=== PATIENT | male | born 1965 | race Caucasian/White ===

== ENCOUNTER → 2017-07-13 | Outpatient (CLI) | payer BC, OTHER ==
[2017-07-13 12:56] LABS: Blood Urea Nitrogen 14 mg/dL (9-20); Non-African American GFR(MDRD) >60 (>60 ml/min/1.73 sqM)
--- NOTE | 2017-07-13 14:14 | CT ---
EXAMINATION TYPE: CT abdomen pelvis w con DATE OF EXAM: 07/13/2017 COMPARISON: NONE HISTORY: Right lower quadrant pain CT DLP: 1414 mGycm Automated exposure control for dose reduction was used. TECHNIQUE: Helical acquisition of images was performed from the lung bases through the pelvis. CONTRAST: Performed with Oral Contrast and with IV Contrast, patient injected with 100 mL of Omnipaque 300. FINDINGS: LUNG BASES: No significant abnormality is appreciated. LIVER/GB: Similar hypoattenuated hepatic lesions are seen within segment 4A and 8 in comparison the p rior exam of 02/03/2016 and appears stable, likely relating to hemangiomas or cysts. A small amount of air is seen within the extrahepatic biliary system, also unchanged from the prior exam secondary to t he Whipple surgery. Gallbladder surgically absent. PANCREAS: Pancreatic head is surgically absent and there is persistent ductal dilatation of the pancr eatic duct SPLEEN: No significant abnormality is seen. ADRENALS: No significant abnormality is seen. KIDNEYS: No significant abnormality is seen. FREE AIR: No free air is visualized. RETROPERITONEAL ADENOPATHY: None visualized nonenlarged portacaval lymph node is seen measuring 5 mm . There is a stable calcified pericaval lymph node on image 35, nonenlarged. REPRODUCTIVE ORGANS: No significant abnormality is seen URINARY BLADDER: No significant abnormality is seen. Small urachal remnant is noted. PELVIC ADENOPATHY: None visualized. OSSEOUS STRUCTURES: No significant abnormality is seen. BOWEL: Proximal small bowel has an unchanged morphology and course in comparison to the prior exam a nd is nondilated, excluding internal hernia and is post Whipple's patient. No fat stranding is seen w ithin the right lower quadrant. OTHER: IMPRESSION: 1. NO CT FINDINGS TO CORRESPOND TO THE PATIENT'S RIGHT LOWER QUADRANT PAIN. NO EVIDENCE OF BOWEL OBST RUCTION. 2. PERSISTENT UNCHANGED PANCREATIC DUCTAL DILATATION STATUS POST WHIPPLE PROCEDURE. 3. STABLE PERICAVAL CALCIFIED LYMPH NODE, NONENLARGED. 4. STABLE HYPOATTENUATED HEPATIC LESIONS, FAVORED TO BE BENIGN.
== END | disposition home or self-care (01) ==
LOC: RADCTMAIN 12:11
PROVIDERS: ATTEND Surgery
DX: K76.89 Other specified diseases of liver (principal); K86.89 Other specified diseases of pancreas
CPT/HCPCS: 82565; 84520; 74177; 36415; Q9967

== ENCOUNTER → 2017-07-18 | Outpatient (CLI) | payer OTHER ==
--- NOTE | 2017-07-18 15:40 | US ---
EXAMINATION TYPE: US scrotum with doppler. Grayscale and color Doppler Duplex imaging performed of t iona scrotum. DATE OF EXAM: 07/18/2017 COMPARISON: NONE CLINICAL HISTORY: Rt lower quadrant pain R10.31, and right scrotal pain after heavy lifting episode i n May. EXAM MEASUREMENTS: TESTICLES: Right Testicle: 4.1 x 3.1 x 2.1 cm Left Testicle: 4.5 x 2.7 x 2.2 cm EPIDIDYMIS HEAD: Right Epididymis: 1.4 x 1.0 x 1.0cm cm Left Epididymis: 1.0 x 1.3 x 0.8 cm Doppler performed to assess for testicular vascularity; good bilateral color flow and waveforms are s een. Presence of hydroceles: Small hydrocele in lower right scrotal sac = 0.6 x 0.6 x 0.8cm. Additional r ight scrotal sac fluid is noted upper sac = 1.5 x 0.4 x 0.6cm. Larger hydrocele in left lower sac = 3.5 x 2.7 x 1.6cm with low level mobile internal echoes. Another fluid collection with internal mobil e echoes is noted lateral left scrotal sac = 1.1 x 0.7 x 0.7cm. Presence of varicoceles: no Color images appear to show satisfactory arterial flow to and venous return from both testicles. Comp arison view shows symmetric blood flow without suspicious skin thickening bilaterally. IMPRESSION: No suspicious asymmetric increased or decreased blood flow to right testicle identified. Small bilateral scrotal fluid collection or hydroceles, debris on the left side is not excluded.
--- NOTE | 2017-07-18 15:41 | US ---
EXAMINATION TYPE: US groin RT DATE OF EXAM: 07/18/2017 COMPARISON: CT abdomen and pelvis 5 days ago. CLINICAL HISTORY: Rt lower quadrant pain R10.31. Patient stated c/o right groin pain and scrotal pain after heavy lifting; prior right inguinal hernia repair approximately 30 years ago. No right inguinal hernia is seen with or without valsalva maneuver. Scanning of right groin shows some benign-appearing subcentimeter lymph nodes. No suspicious bowel or fat-containing ventral hernia is present. Findings correlate with recent CT. IMPRESSION: As above
== END | disposition home or self-care (01) ==
LOC: RADUSWWP 14:26
PROVIDERS: ATTEND Surgery
DX: N43.3 Hydrocele, unspecified (principal); R10.31 Right lower quadrant pain
CPT/HCPCS: 76870; 93975

== ENCOUNTER → 2022-07-14 | Outpatient (CLI) | payer BC ==
--- NOTE | 2022-07-14 14:42 | XR ---
Thoracic spine. HISTORY: Back pain following lifting injury. COMPARISON: None. TECHNIQUE: 5 views of thoracic spine were obtained. There is a mild superior endplate wedge compression deformity of T7. The thoracic vertebral segments are normal in height and alignment. There is minimal degenerative disc disease. The paraspinal soft tissues unremarkable. IMPRESSION: Mild compression fracture of T7 of indeterminate age. CT of the thoracic spine would be useful for fu rther evaluation.
== END | disposition home or self-care (01) ==
LOC: RADXRMAIN 11:33
PROVIDERS: ATTEND Chiropractor
DX: M48.54XA Collapsed vertebra, not elsewhere classified, thoracic region, initial encounter for fracture (principal)
CPT/HCPCS: 72070

== ENCOUNTER → 2022-11-03 | Outpatient (CLI) | payer BC ==
--- NOTE | 2022-11-03 18:03 | CT ---
EXAMINATION TYPE: CT femur RT wo con DATE OF EXAM: 11/03/2022 COMPARISON: None HISTORY: myeloma of bilateral femurs CT DLP: 1418.1 mGycm Automated exposure control for dose reduction was used. Images obtained from the acetabulum to the proximal tibia with no contrast. There is a area of lucency in the right ilium that measures 3.5 x 2 cm. This lucency extends into the medial aspect of the right acetabulum. The femur is intact. There is a right knee prosthesis. Compon ents appear in anatomic position. No focal bone destruction seen involving the femur. No fracture see n. There is atherosclerotic vascular calcification. IMPRESSION: There are some osteolytic changes in the right iliac bone consistent with myeloma. No fracture seen. No evidence of femoral fracture.
--- NOTE | 2022-11-03 18:15 | CT ---
EXAMINATION TYPE: CT femur LT wo con DATE OF EXAM: 11/03/2022 COMPARISON: None HISTORY: myeloma of bilateral femurs CT DLP: 1418.1 mGycm Automated exposure control for dose reduction was used. Images obtained from the acetabulum to the proximal tibia without contrast. The left acetabulum is intact. There is 2.7 cm irregular area of lucency in the left femoral neck with some destructive changes of t he cancellous bone in the femoral neck. There is also 1.5 cm area of lucency in the subtrochanteric l ateral femur. There is cortical thinning and osteolytic change involving the medial cortex of the pro ximal shaft of the left femur. This lesion measures 1.5 cm. The proximal tibia is intact. No fracture seen. There is stent in the left popliteal artery. IMPRESSION: Osteolytic areas in the proximal femur as above consistent with myeloma. No fracture seen. Atheroscle rotic vascular calcification.
== END | disposition home or self-care (01) ==
LOC: RADCTMAIN 15:51
PROVIDERS: ATTEND Orthopaedic Surgery
DX: C90.00 Multiple myeloma not having achieved remission (principal); C79.51 Secondary malignant neoplasm of bone; I73.9 Peripheral vascular disease, unspecified; M89.552 Osteolysis, left thigh; M89.58 Osteolysis, other site

== ENCOUNTER → 2023-03-15 | Outpatient (CLI) | payer BC ==
[2023-03-15 13:24] LABS: Prothrombin Time 10.2 sec (9.0-12.0)
[2023-03-15 13:47] LABS: Partial Thromboplastin Time 20.4 sec (22.0-30.0)
[2023-03-15 20:51] LABS: Basophils # (A) 0.03 X 10*3/uL (0.00-0.10); Basophils % (A) 0.5 %; Eosinophils # (A) 0.16 X 10*3/uL (0.04-0.35); Eosinophils % (A) 2.5 %; HCT 35.7 % (39.6-50.0); HGB 11.2 g/dL (13.0-17.0); Immature Grans, Automated 0.3 %; Lymphocytes # (A) 0.76 X 10*3/uL (0.90-5.00); Lymphocytes % (A) 11.9 %; MCH 30.4 pg (27.0-32.0); MCHC 31.4 g/dL (32.0-37.0); MCV 96.7 fL (80.0-97.0); Mean Platelet Volume 11.9 fL (9.5-12.2); Monocytes # (A) 0.93 X 10*3/uL (0.20-1.00); Monocytes % (A) 14.6 %; NRBC Per 100 WBC 0 /100 WBCS (0.0-0.0); Neutrophils # (A) 4.48 X 10*3/uL (1.80-7.70); Neutrophils % (A) 70.2 %; Platelet Count 231 X 10*3/uL (140-440); RBC 3.69 X 10*6/uL (4.40-5.60); RDW 15.2 % (11.5-14.5); WBC 6.38 X 10*3/uL (4.50-10.00)
[2023-03-15 21:13] LABS: African American GFR (CKD) 75.5 (60.0-200.0); BUN/Creat Ratio 22.64 Ratio (12.00-20.00); Blood Urea Nitrogen 27.4 mg/dL (9.0-27.0); Calcium 9.2 mg/dL (8.7-10.3); Carbon Dioxide 25.7 mmol/L (20.0-27.5); Non-African American GFR(CKD) 65.1 (60.0-200.0); Potassium 4.9 mmol/L (3.5-5.5)
[2023-03-15 23:02] LABS: Appearance,Urine Clear (Clear); Bilirubin,Urine Negative (Negative); Blood,Urine Negative (Negative); Color,Urine Yellow (Yellow); Ketones,Urine Negative (Negative); Nitrite,Urine Negative (Negative); Specific Gravity,Urine 1.021 (1.001-1.030); Urobilinogen,Urine 0.2 (0.2,1.0)
== END | disposition home or self-care (01) ==
LOC: LABPAT 11:24
PROVIDERS: ATTEND Orthopaedic Surgery Orthopaedic Surgery of the Spine
DX: Z01.812 Encounter for preprocedural laboratory examination (principal); M84.48XA Pathological fracture, other site, initial encounter for fracture
CPT/HCPCS: 80048; 81001; 85025; 85610; 85730; 87070

== ENCOUNTER 2023-03-28 06:21 | Day surgery (SDC) | payer BC ==
[~2023-03-28 06:21] MED LIST: ceFAZolin 1,000 MG in SODIUM CHLORIDE 0.9% IRRIGATIO 1,000 ML IRRIGATION PRN
[2023-03-28] MEDS ORDERED: LACTATED RINGERS 1,000 ML IV SCH (06:23)
[2023-03-28] MEDS ORDERED: ONDANSETRON 4 MG/2 ML VIAL IVP ONE (06:23)
[2023-03-28] MEDS ORDERED: droPERidol 5 MG/2 ML VIAL IVP ONE (06:23)
[2023-03-28] MEDS ORDERED: LIDOCAINE 1% (10MG/ML) FOR IV START INTRADERMA PRN (06:23)
[2023-03-28] MEDS ORDERED: HYDROmorphone 0.5 MG/0.5 ML SYRINGE IVP PRN (07:00)
[2023-03-28 07:12] LABS: Glucose,Whole Blood 241 mg/dL (70-110)
[2023-03-28] MEDS ORDERED: DEXAMETHASONE SOD PHOSPHATE 4 MG/ML 1 ML VIAL IVP ONE (07:17)
[2023-03-28] MEDS ORDERED: fentaNYL (PF) 50 MCG/ML 2 ML AMP ONE (07:25)
[2023-03-28] MEDS ORDERED: GLYCOPYRROLATE 0.2 MG/ML 2 ML VIAL ONE (07:25)
[2023-03-28] MEDS ORDERED: LIDOCAINE 2% INJ 20 MG/ML (2 ML VIAL) ONE (07:25)
[2023-03-28] MEDS ORDERED: MIDAZOLAM 2 MG/2 ML VIAL ONE (07:25)
[2023-03-28] MEDS ORDERED: ROCURONIUM 10 MG/ML (5 ML VIAL) IV ONE (07:25)
[2023-03-28] MEDS ORDERED: SUCCINYLCHOLINE CHLORIDE 200 MG/10 ML VIAL IV ONE (07:25)
[2023-03-28] MEDS ORDERED: PHENYLEPHRINE-0.9% NACL SYG 1,000 MCG/10 ML SYRINGE ONE (07:25)
[2023-03-28] MEDS ORDERED: PROPOFOL 10 MG/ML 20 ML VIAL IV ONE (07:25)
[2023-03-28] MEDS ORDERED: NEOSTIGMINE 1 MG/ML 10 ML VIAL ONE (07:25)
[2023-03-28] MEDS ORDERED: LIDOCAINE 2%-EPI 1:100,000 20 ML VIAL SQ ONE (08:05)
[2023-03-28] MEDS ORDERED: BUPIVACAINE (PF) 0.5% 30 ML VIAL SQ ONE (08:05)
[2023-03-28] MEDS ORDERED: IOPAMIDOL M200 10 ML VIAL MISCELLANE ONE (08:15)
[2023-03-28] MEDS ORDERED: KETOROLAC 15 MG/ML 1 ML VIAL IVP PRN (08:41)
[2023-03-28] MEDS ORDERED: ACETAMINOPHEN TAB 500 MG TAB PO PRN (08:41)
[2023-03-28] MEDS ORDERED: ONDANSETRON 4 MG/2 ML VIAL IVP PRN (08:41)
[2023-03-28] MEDS ORDERED: CYCLOBENZAPRINE 10 MG TAB PO PRN (08:41)
[2023-03-28] MEDS ORDERED: HYDROcodone/APAP 5-325MG 1 EACH TAB PO PRN (08:41)
--- NOTE | 2023-03-28 08:48 | P.OP ---
Date of Procedure: 03/28/23 Preoperative Diagnosis: L4 pathologic compression fracture, low back pain, history of multiple myeloma Postoperative Diagnosis: Same Anesthesia: GETA Pathology: other (Bone marrow aspirate from L4 sent to cytology and pathology) Condition: stable Disposition: PACU Description of Procedure: BRIEF OPERATIVE NOTE Preoperative Diagnosis: L4 pathologic compression fracture, low back pain, history of multiple myeloma Postoperative Diagnosis: Same Procedure: Kyphoplasty of L4 Vertebral body biopsy of L4 Use of biplanar fluoroscopic guidance Surgeon: Dr. Lennon Staff Development Coordinator: Lion Calvert is present throughout the entire the case persistence during positioning, dissection, exposure, visualization, and all cr ucial elements of the case as well as closure. Anesthesia: General anesthesia Estimated blood loss: Less than 10 mL Specimen: Vertebral body biopsy sent to pathology in formalin and vertebral bone aspirate for cytology. Complications: None apparent Components implanted: Bone cement approximately 8 mL Disposition: To recovery room in good stable condition. OPERATIVE INDICATIONS The patient has been having issues in their back over the past month. Patient has history of multiple myeloma and had evidence of bony change with bone loss and new compression fracture at L4. The patient has been through conservative treatment. They attempted conservative care with bracing however they're not having any benefit despite brace use. They continue to have significant pain and debility due to their fracture. We discussed various treatment options including surgery, and the patient wishes to proceed with surgery We discussed the risk, patient's alternatives and benefits of surgery including but not limited to, risk of bleeding risk of infection, risk of need for further surgery, risk of decreased, loss of motion, loss of function, cement extravasation, nerve damage, paralysis, heart attack, blindness and . OPERATIVE SUMMARY After discussing all the risks, patient alternatives and benefits at length, the patient elected to proceed with surgical intervention, signed informed consent, and presented for their procedure. The patient was seen and examined in the preoperative holding area and the surgical site was marked. The patient was given antibiotics and brought to the operating room. The patient was sedated and intubated by anesthesia in standard fashion. The patient was positioned on to the operating room table in a prone position on the appropriate well-padded and well molded bilateral chest rolls. We were careful to pad any bony prominences and pressure points. We were careful to maintain the patient's cervical spine and good neutral alignment and position throughout. We used 2 C-arm machines to establish biplanar fluoroscopic guidance in AP and lateral positions. We were able to localize the fractures appropriately. The patient was prepped and draped in a normal standard fashion. An appropriate timeout and keystone protocol performed. We were able to proceed with the surgery. The local wound area was infiltrated with local anesthetic. An incision was made over the lateral aspect of the pedicle over the appropriate levels with a small 2 mm stab incision on the right. Intraoperative fluoroscopy was taken which showed a marker at the appropriate level. With the appropriate level positively confirmed at L4, I was able to position a sharp trocar over the lateral aspect of the pedicle. As able to advance the trocar into the pedicle and into the posterior aspect of vertebral body being careful to avoid penetration cephalad caudad or medially. The trocar was placed appropriately into the posterior aspect of vertebral body at the appropriate levels of L4. This was confirmed with C-arm guidance. With the trocar intact I was then able to take a bone biopsy with a biopsy punch or a bony drill. The bone had no significant consistency and I was able to remove some coagulated cells and bone marrow aspirate to passed off for pathology and cytology. The biopsy specimen was passed off to be sent to pathology in formalin. I was then able to place the kyphoplasty balloon within the vertebral body. The position was checked on C-arm. I was able to inflate the balloon under very low pressure and visualization with C-arm. The balloon was well enclosed within the vertebral body. The cement was prepared. With the cement at appropriate working condition the balloons were deflated and removed. I was able to place bony cement with trocar with the cement delivery device under low pressure. It had good fill within the vertebral body. The fill was excellent throughout the entire course of the vertebral body without any exit evidence of extrusion There is no evidence of any extravasation of the cement posteriorly toward the canal. The cement was well contained at the appropriate levels. The cement was allowed to cure appropriately. The trochars removed and final images were taken on C- arm. This showed the cement at the appropriate levels at L4. We were able to proceed with closure. The wound was cleaned and dried and dressed with the appropriate dressing. The drapes were broken down. The patient was gently rolled back onto their hospital bed being careful to maintain their cervical spine and good neutral alignment and position. They were woken up by anesthesia, extubated, and brought to the recovery room in good stable condition. The patient will be admitted to the hospital for observation and for appropriate postoperative care, medical management and monitoring. We will continue to follow them closely about the postoperative course.
--- NOTE | 2023-03-28 08:51 | FL ---
EXAMINATION TYPE: FL guidance operating room DATE OF EXAM: 03/28/2023 HISTORY: Fluoroscopy time Total dose area product (DAP) in uGy*m?, mGy*cm? (or similar): 41.51588 IMPRESSION: 1. Fluoroscopy time.
--- NOTE | 2023-03-28 08:52 | XR ---
EXAM TYPE: LUMBAR SPINE X RAY SERIES COMPARISON: NONE HISTORY: Kyphoplasty TECHNIQUE: 5 views are submitted. FINDINGS: Limited resolution intraoperative images demonstrate preprocedural postprocedure changes of kyphoplas ty of a compression fracture lower lumbar spine. IMPRESSION: 1. Kyphoplasty intraoperative images.
[2023-03-28 08:54] VITALS: TEMP 97
[2023-03-28 09:06] LABS: Glucose,Whole Blood 245 mg/dL (70-110)
[2023-03-28] MEDS ORDERED: INSULIN ASPART (NovoLOG) 100 UNIT/ML VIAL SQ ONE (09:15)
[2023-03-28 09:59] VITALS: RESP 18
[2023-03-28 10:54] VITALS: BP 132/78; PULSE 78
== END 2023-03-28 11:06 | disposition home or self-care (01) ==
LOC: OR 06:21
PROVIDERS: ATTEND Orthopaedic Surgery Orthopaedic Surgery of the Spine
DX: M48.56XA Collapsed vertebra, not elsewhere classified, lumbar region, initial encounter for fracture (principal); I10 Essential (primary) hypertension; E78.5 Hyperlipidemia, unspecified; E11.9 Type 2 diabetes mellitus without complications; Z82.49 Family history of ischemic heart disease and other diseases of the circulatory system; Z79.899 Other long term (current) drug therapy; Z83.3 Family history of diabetes mellitus; Z79.84 Long term (current) use of oral hypoglycemic drugs; Z85.79 Personal history of other malignant neoplasms of lymphoid, hematopoietic and related tissues
CPT/HCPCS: 72100; 22514; C1713; J2250; J0330; J1100; J2710; J0690; J2405; J3010; J1885; J2370; J2704; J1170; Q9966; J2001; 88173